=== PATIENT | male | born 1960 | race Hispanic/Latino ===

== ENCOUNTER 2017-12-25 21:17 | Observation (INO) | payer SELFPAY ==
[2017-12-25 21:50] LABS: Bilirubin Negative (Negative); Blood, Urine Large (Negative); Clarity CLEAR (Clear); Glucose, Urine (Dipstick) Negative (Negative); Leukocyte Negative (Negative); Nitrite Negative (Negative); Protein, Urine (Dipstick) 30 mg/dL (Neg-Trace); pH, Urine 5.5 (5.0-9.0)
[2017-12-25 21:52] LABS: Bacteria/HPF None Seen HPF (None Seen); Hyaline Casts/LPF 0-3 HYALINE CAST LPF (0-3 Hyaline); Pathc Cast-AUWi Flag 0.14 (0-2.49); RBC/HPF GREATER THAN 50-TNTC HPF (0-3); Squamous Epithelial None Seen HPF (0-3)
[2017-12-25 22:00] LABS: #Basophils 0.1 thou/uL (0.0-0.2); #Eosinphils 0.4 thou/uL (0.0-0.7); #Lymphocytes 2.4 thou/uL (1.20-3.40); #Monocytes 0.8 thou/uL (0.11-0.59); %Basophils 0.6 % (0.0-1.0); %Eosinophils 4.3 % (0.0-10.0); %Monocytes 9.6 % (0.0-10.0); %Neutrophils 57.5 % (42.0-75.0); Mean Corpuscular Hemoglobin 33.2 pg (27.0-31.0); Mean Corpuscular Volume 92.2 fL (78.0-98.0); Mean Platelet Volume 7.8 fL (7.4-10.4); Platelet Count 282 thou/uL (130-400); RBC Distribution Width 11.8 % (11.5-14.5); Red Blood Cell (RBC) Count 3.91 mill/uL (4.70-6.10); White Blood Cell (WBC) Count 8.7 thou/uL (4.8-10.8)
[2017-12-25 22:03] LABS: Crystals/HPF 1+ CA OXALATE HPF (Negative)
[2017-12-25 22:07] LABS: ALT (SGPT) 17 U/L (8-55); AST (SGOT) 17 U/L (5-34); Albumin 4.5 g/dL (3.5-5.0); Alkaline Phosphatase 112 U/L (40-150); Anion Gap 14 mmol/L (10-20); BUN (Urea Nitrogen) 24 mg/dL (8.4-25.7); Bilirubin, Total 0.8 mg/dL (0.2-1.2); Calc. Creatinine Clearance 0 mL/min (70-130); Calcium 9.1 mg/dL (7.8-10.44); Carbon Dioxide 22 mmol/L (22-29); Chloride 106 mmol/L (98-107); Estimated GFR-MDRD 58; Glucose 138 mg/dL (70-105); Potassium 3.9 mmol/L (3.5-5.1); Protein, Total 7.5 g/dL (6.0-8.3); Sodium 138 mmol/L (136-145)
[2017-12-25] MEDS ORDERED: Ketorolac Tromethamine 30 MG/ML VIAL ONE (23:01)
--- NOTE | 2017-12-25 23:48 | CT ---
CT OF ABDOMEN AND PELVIS 12/25/17 COMPARISON: 06/12/16 HISTORY: Chronic kidney stones, left sided flank pain. TECHNIQUE: Serial axial CT imaging at 5 mm intervals from lung bases through pubic symphysis without contrast. C oronal reformatted imaging obtained. FINDINGS: The lack of contrast limits assessment of the viscera, bowel, vascular structures and for lymphadenop athy. The visualized lung bases are unremarkable. No free intraperitoneal air is noted. The liver, spleen, gallbladder, pancreas, and adrenal glands are grossly unremarkable. There are two intrarenal calculi within the lower pole on the left measuring up to approximately 6 mm . On the right, there is an exophytic hyperdense lesion suggesting a hemorrhagic cyst in the 1.0 cm ran ge, with Hounsfield units of approximately 85. There is no evidence for an intrarenal calculus on the right. No evidence for obstructive uropathy is noted on either side. There is mild nonspecific prominence of the proximal left ureter but no calcification is seen along the course of either ureter. However, th ere is a calcification inferior to and posterior to the pubic symphysis, which measures 6 mm, best se en on axial image 86 and coronal image 93. This was not present on the prior examination. On the prio r study, there was a stone within the lower pole of the right kidney. Thus, this may represent a ston e within penile urethra. No evidence for bowel obstruction or bowel inflammatory change. Appendix appears grossly unremarkable . Review of the osseous structures demonstrates multilevel degenerative change within the imaged spine. IMPRESSION: 1. Intrarenal calculi on the left. 2. Findings suggesting a 6-7 mm stone within the penile urethra as described above. POS: [facility]
[2017-12-26] MEDS ORDERED: Ondansetron ODT 4 MG TAB ONE (00:01)
[2017-12-26] MEDS ORDERED: Metoclopramide HCl 10 MG/2 ML VIAL IVP PRN (02:42)
[2017-12-26] MEDS ORDERED: Acetaminophen 500 MG TAB PO PRN (02:42)
[2017-12-26] MEDS ORDERED: Ondansetron HCl/PF 4 MG/2 ML Vial IVP PRN ×2 (02:42→15:06)
[2017-12-26] MEDS ORDERED: diphenhydrAMINE 50 MG in Sodium Chloride 0.9% 50 ML IVPB PRN (02:42)
[2017-12-26] MEDS ORDERED: CEFAZOLIN/Water 2 GM/20 ML SYRINGE SLOW IVP SCH (03:00)
[2017-12-26 04:46] VITALS: BMI 27.0
--- NOTE | 2017-12-26 05:30 | HP ---
DATE OF SERVICE: 12/26/2017 ADMISSION DIAGNOSIS: Obstructing urethral stone and retention status post Sullivan placement in the ER, admitted for definitive therapy. HISTORY OF PRESENT ILLNESS: The patient is a 57-year-old male who had left flank pain consistent with prior stone episodes of which he has had many and passed most, but has required surgery by Dr. Slater for ureteral stones and underwent laser lithotripsy. He also has had ESWL in [place] before that with another urologist, so this was a similar pain to him, until ultimately he felt like he had the urge to urinate could not. He felt significant discomfort and like something was blocked and presented to the ER. A CT scan revealed he had a urethral stone with a distended bladder, and I was called after the ER could not place a catheter after multiple attempts. PAST MEDICAL HISTORY: Chronic back and neck pain related to work injury for which he needs surgery, but has not had surgery, right sciatica, renal stones. Possible borderline diabetes, but he has not had this as an official diagnosis. PAST SURGICAL HISTORY: Includes knee and ankle surgery after trauma, ureteroscopy in 02/2016 and prior ESWL before that. MEDICATIONS: Gabapentin 800 mg t.i.d., [place] normally for his back pain, although he has not taken this recently since he has not had insurance, which will start on 01/15/2018. ALLERGIES: None. SOCIAL HISTORY: He does not smoke, drink or use drugs. He lives at home with his mother and his daughter and granddaughter. Daughter and granddaughter are here with him. REVIEW OF SYSTEMS: Reveals frequency only 3 times a day and nocturia x1, some hesitancy if he lets the bladder get over distended, but otherwise no significant weak stream or lower urinary tract symptoms. He has had blood lately. This is not normal for him, but only around the time of the stone. He did not have any fever or chills. He did have nausea and vomiting. He did not have any chest pain, but he did admit to some shortness of breath which is not new. No cough, no reflux, no diarrhea or constipation. He has had a colonoscopy that was done for screening purposes which was normal. He is not aware of prostate cancer screening. FAMILY HISTORY: His mother is alive and well at 94. Dad passed of lung cancer at 69. He did smoke. A nephew had stomach cancer and a sister had breast cancer. PHYSICAL EXAMINATION: GENERAL: He appears comfortable in the bed as he reports urinating some since he got here. VITAL SIGNS: Temperature of 97.9, blood pressure 145/81, heart rate 66, satting 97% on room air. CARDIOVASCULAR: Regular rate and rhythm. No murmurs, gallops or rubs. LUNGS: Clear to auscultation bilaterally. NECK: There is no obvious JVD. HEENT: There is no sclerae or scleral icterus. SKIN: There are no significant skin lesions nor diaphoresis noted. ABDOMEN: Soft, nondistended, nontender with normoactive bowel sounds. He had no costovertebral angle tenderness. GENITOURINARY: His testes are descended bilaterally without masses. Phallus was uncircumcised without lesions and easily retracted without concerns for phimosis nor meatal stenosis. RECTAL: Digital rectal exam revealed a small prostate without any nodules or sidewall fixation and was nontender. EXTREMITIES: He had no significant lower extremity edema. He was prepped and draped in sterile fashion and then using a 22-Bengali silicone catheter after inserting a tube of lubrication in the urethra, a Sullivan was attempted to be passed. There was significant resistance noted; however, I was able to still get a significant amount of yellow urine return, but it did still feel like it was not fully in the bladder based on the resistance and coiling noted. So with further manipulation, I felt it had gone in farther , and I attempted to blow up the balloon. There was just too much resistance. It did not hurt him, but I could not inflate the balloon. So either the stone itself was blocking the ability to fill up the balloon, or it was still in his prostate. With further manipulation, I was able to get it into the bladder and easily blow up the balloon without any increased pain for him. He tolerated the procedure okay. There was blood around the catheter noted, but clear yellow urine return, which was sent for micro and culture. I secured it into place. LABORATORY DATA: Reveal a mild anemia at 13.0 and 36.1. Chemistries were normal other than a glucose of 138 and a creatinine was 1.29 with priors being up to 1.4 in 2013, but also 1.11 in 2016. Urinalysis that he had voided in the ER showed 4-6 WBCs, too numerous to count RBCs, no bacteria, no squamous cells, and 1+ calcium oxalate crystals. CT scan without contrast reviewed personally revealed no obvious hydronephrosis , but possibly a slight distention on the left compared to right with 2 left lower pole stones, 5 x 4 and 4 x 4 mm noted on the left, none on the right which were probably noted on construction sales representative, then a full bladder with a urethral stone, presumably in the bulbar urethra that measured 7 x 8 mm. This was definitely seen on construction sales representative. ASSESSMENT AND PLAN: We had a discussion as whether or not I would be able to place the Sullivan catheter and then whether to treat the bladder stone and the renal stone simultaneously. However, since he does not currently have insurance , we would only be able to treat the immediate obstructing stone which would be the bladder stone and anticipate cystolitholapaxy for this in which case I would admit him and attempt to get this performed in the next 24 hours. I'll keep him n.p.o. We discussed the risks and benefits of this in detail and he consented for that. We also discussed treating the other stones electively; however, they were smaller than what he just passed, so he may opt to attempt to pass them spontaneously in the future. Finally we discussed stone prevention in detail to include both dietary changes as well as he simply needs to drink more water. He should do a 24hUA when he has insurance. I'll review all of this with Dr. Slater. DAVIE
[2017-12-26] MEDS: Lactated Ringer's 1,000 ML IV SCH ×3 (06:59→16:15)
[2017-12-26] MEDS ORDERED: Docusate 100 MG CAP PO SCH (09:00)
[2017-12-26] MEDS ORDERED: Famotidine/PF 20 mg/2ml Vial SLOW IVP SCH (09:00)
[2017-12-26] MEDS ORDERED: Morphine 4 MG/ML VIAL ONE ×2 (13:07→14:08)
[2017-12-26] MEDS ORDERED: Fentanyl 100 MCG/2 ML VIAL ONE ×2 (14:08)
[2017-12-26] MEDS ORDERED: Levofloxacin 500 mg/D5W 100 ml Premix Bag ONE (14:18)
[2017-12-26] MEDS ORDERED: Dexamethasone 20 MG/5 ML VIAL ONE (14:32)
[2017-12-26] MEDS ORDERED: PROPOFOL 200 MG/20 ML VIAL ONE (14:32)
[2017-12-26] MEDS ORDERED: Ondansetron HCl/PF 4 MG/2 ML Vial ONE (14:32)
[2017-12-26] MEDS ORDERED: Lidocaine 1% PF 5 ML VIAL ONE (14:32)
[2017-12-26] MEDS ORDERED: Promethazine HCl 25 MG/ML VIAL IM PRN (15:06)
[2017-12-26] MEDS ORDERED: Morphine Sulfate 2 MG/ML SYRINGE SLOW IVP PRN (15:06)
[2017-12-26] MEDS ORDERED: Promethazine HCl 25 MG/ML VIAL SLOW IVP PRN (15:06)
[2017-12-26] MEDS ORDERED: HYDROcodone/Acetaminophen 10/325 mg Tablet PO PRN (15:47)
[2017-12-26 15:57] VITALS: BP 172/92; TEMP 97.9
[2017-12-26] MEDS ORDERED: hydrALAZINE 20 MG/ML VIAL SLOW IVP SCH (16:15)
[2017-12-26] MEDS ORDERED: Gabapentin 400 MG CAP PO SCH (21:00)
--- NOTE | 2017-12-26 21:20 | OP ---
DATE OF PROCEDURE: 12/26/2017 SERVICE: Urology. SURGEON: Jarod Slater M.D. PREOPERATIVE DIAGNOSIS: Urethral stone. POSTOPERATIVE DIAGNOSIS: Urethral stone. PROCEDURE PERFORMED: Cystolitholapaxy with holmium laser. INDICATIONS FOR PROCEDURE: Mr. De Los Santos is a 57-year-old male who had seen me previously for nephrolithiasis. He has had multiple procedures done and has passed numerable stones. Due to loss o f insurance, he stopped following up with me and has not seen me for several years. He ended up comi ng into the Emergency Room complaining of flank pain. Significant suprapubic pain and difficulty uri nating. He was seen by Dr. Schilling and found to have a urethral stone on CT scan. He has had a Sullivan placed, but is now coming to me for removal of the offending stone. Risks and benefits of the proce dure have been discussed and he has agreed to proceed forward. DESCRIPTION OF PROCEDURE: After identification of armband verification and consent, the patient was brought back to the operating room. He underwent general anesthesia with LMA. He was then placed in dorsal lithotomy position, prepped and draped in usual sterile fashion. After appropriate timeout, a lubricated 22 Paraguayan rigid cystoscope was introduced per urethra to the level of the membranous ure thra. At the apex of the prostate, a calcification was noted to be impacted with significant inflamm ation of the surrounding tissues. Using a 550-micron laser fiber, the stone was fragmented into smal ler pieces, some of the pieces were basketed out through the urethra using a 1.9 Paraguayan 0 tip nitinol basket. The remaining pieces kind of went into the bladder by themselves and were pushed in with th e cystoscope. The remaining pieces were then evacuated directly from the bladder using a combination of basket manipulation and a simple irrigation to remove the stones. Upon completion, these stones were all completely gone. Inspection of the urethra demonstrated significant damage to the urotheliu m, but no significant damage below this. There is a high risk the patient may end up with a urethral stricture at this point, although it is unclear whether or not this will definitely occur. The blad alex was left full and the cystoscope removed. A 16-Paraguayan Sullivan catheter was then placed with ease i nto the bladder, 10 mL of sterile water placed into the balloon and this was hooked to a StatLock and a gravity bag. He was then taken out of lithotomy, awakened and taken to PACU for recovery in stabl e condition. COMPLICATIONS: None. ESTIMATED BLOOD LOSS: Minimal. RETAINED TUBES AND DRAINS: A 16-Paraguayan Sullivan catheter. SPECIMENS: Stone for stone analysis. DISPOSITION: Patient will be discharged home and follow up with me in a week for a void trial.
--- NOTE | 2017-12-27 14:20 | DIS ---
DATE OF ADMISSION: 12/26/2017 DATE OF DISCHARGE: 12/26/2017 ADMITTING PHYSICIAN: Myla Schilling MD DISCHARGING PHYSICIAN: Jarod Slater M.D. ADMITTING DIAGNOSIS: Urinary retention. DISCHARGE DIAGNOSIS: Ureteral stone with urinary retention. PROCEDURE PERFORMED WHILE INPATIENT: Cystolitholapaxy less than 2 cm. BRIEF HISTORY: Mr. De Los Santos is a 57-year-old male who came into the hospital with urinary ret ention. He was seen by Dr. Schilling who attempted to place a Sullivan catheter in and on CT was found to have a urethral stone. The catheter was able to be placed, but it was unclear whether the stone was still in the urethra or back in the bladder. He was scheduled for surgery and admit to the hospital at which point, I took over his care. The full H&P can be found in the dictated portion of the [employer] system. HOSPITAL COURSE: The patient remained in the hospital n.p.o. with pain control until the surgery. Narendra barkley underwent his surgery (please see operative note for details), which successfully remove the stone. Postoperatively, he was discharged home with a Sullivan catheter. DISPOSITION: Discharge to home with catheter. DISCHARGE CONDITION: Good. FOLLOWUP: Follow up will be in 1 week for a void trial. DISCHARGE INSTRUCTIONS: Included in the [employer] system along with his discharge medications.
[2018-01-03 13:36] LABS: CA Oxalate Dihydrate 22 % (.); CA Oxalate Monohydrate 63 % (.); CA Phosphate 15 % (.); Color Tan (.); Stone Size 6x5x3 mm (.)
--- NOTE | 2018-01-07 11:58 | PQF ---
[facility] POST DISCHARGE CLINICAL DOCUMENTATION IMPROVEMENT CLARIFICATION FORM Todays Date: 01/04/18 Patients Name Filiberto Ronquillo Admit Date 12/26/17 Disch Date 12/26/17 Machine Tailer Name Sumit Og Email: [email or web address] Cell: [phone] Present Clinical Indicators - Signs / Symptoms Results and Location in Medical Record [ ] Documentation of: [ ] [ ] Documentation of: [ ] [ ] Documentation of: [ ] [ ] Documentation of: [ ] [ ] Risks [ ] [ ] [ ] Treatment [ ] Missing Bladder stone size in operative report in [facility] Please specify the Bladder Stone size by responding on this query or by adding an addendum to the operative note. [ ] [ ] Dr Jarod Slater The documentation in this patients record requires clarification to ensure coding compliance and accuracy. Check the appropriate box and include in your discharge summary. [X ] Bladder stone was 1 cm [ ] [ ] [ ] Please check this box if this does not apply to this patient [ ] Unable to determine [ ] Other diagnosis: Review the following information and exercise your independent professional judgment in responding to the clarification. Based upon the clinical findings, risk factors, and treatment, please clarify if you are treating one of the above probable or suspected diagnoses. Physician Signature: Jarod Slater Date___01/08/28____ Time__13:21____ __ MTDD
== END 2017-12-26 17:45 | disposition home or self-care (01) ==
LOC: ERS 21:17 → SURG A 12-26 03:02
PROVIDERS: ADMIT Urology; ATTEND Urology
PROC: 0TCB8ZZ Extirpation of Matter from Bladder, Via Natural or Artificial Opening Endoscopic (ICD-10-PCS; principal; 2017-12-26)
DX: N21.1 Calculus in urethra (principal); N13.8 Other obstructive and reflux uropathy; R33.8 Other retention of urine; I10 Essential (primary) hypertension; R73.03 Prediabetes; G47.30 Sleep apnea, unspecified; Z80.0 Family history of malignant neoplasm of digestive organs; Z87.39 Personal history of other diseases of the musculoskeletal system and connective tissue; Z80.1 Family history of malignant neoplasm of trachea, bronchus and lung; Z80.3 Family history of malignant neoplasm of breast
CPT/HCPCS: 36415; 51702; 74176; 80053; 81003; 81015; 82365; 85025; 87086; 88300; 96361; 96374; 96375; 96376; C1769; G0378; J1100; J1885; J1956; J2001; J2270; J2405; J2704; J3010; Q0162

== ENCOUNTER 2018-03-07 13:53 | Outpatient (CLI) | payer MEDICARE ==
--- NOTE | 2018-03-07 15:01 | RAD ---
CHEST 2 VIEWS: HISTORY: Preop. FINDINGS: Cardiac silhouette and pulmonary vasculature are unremarkable. Mediastinum is midline. No confluent airspace consolidation, pneumothorax, or pleural fluid. IMPRESSION: No active cardiopulmonary abnormalities are demonstrated. POS: [facility]
[2018-03-07 15:15] LABS: Hemoglobin 13.3 g/dL (14.0-18.0); Mean Corpuscular HGB CONC 33.4 g/dL (32.0-36.0); Mean Corpuscular Hemoglobin 31.6 pg (27.0-31.0); Mean Corpuscular Volume 94.6 fL (78.0-98.0); Mean Platelet Volume 8.4 fL (7.4-10.4); Platelet Count 337 thou/uL (130-400); RBC Distribution Width 11.8 % (11.5-14.5); White Blood Cell (WBC) Count 6.5 thou/uL (4.8-10.8)
[2018-03-07 15:21] LABS: Prothrombin Time 12.9 SEC (12.0-14.7)
[2018-03-07 15:26] LABS: Bilirubin Negative (Negative); Blood, Urine Negative (Negative); Clarity CLEAR (Clear); Glucose, Urine (Dipstick) Negative (Negative); Leukocyte Negative (Negative); Nitrite Negative (Negative); Protein, Urine (Dipstick) Negative (Neg-Trace); Specific Gravity, Urine 1.017 (1.002-1.036); Urobilinogen 0.2 mg/dL (0.2-1.0); pH, Urine 5.5 (5.0-9.0)
[2018-03-07 15:29] LABS: Bacteria/HPF None Seen HPF (None Seen); Hyaline Casts/LPF 0-3 HYALINE CAST LPF (0-3 Hyaline); Pathc Cast-AUWi Flag 0.29 (0-2.49); Squamous Epithelial 0-3 HPF (0-3)
[2018-03-07 15:50] LABS: Anion Gap 12 mmol/L (10-20); BUN (Urea Nitrogen) 17 mg/dL (8.4-25.7); Calc. Creatinine Clearance 0 mL/min (70-130); Calcium 9.6 mg/dL (7.8-10.44); Carbon Dioxide 24 mmol/L (22-29); Chloride 105 mmol/L (98-107); Estimated GFR-MDRD 66; Glucose 100 mg/dL (70-105); Potassium 3.5 mmol/L (3.5-5.1); Sodium 137 mmol/L (136-145)
--- NOTE | 2018-03-09 17:53 | EKG ---
Test Reason : Blood Pressure : / mmHG Vent. Rate : 062 BPM Atrial Rate : 062 BPM P-R Int : 140 ms QRS Dur : 092 ms QT Int : 408 ms P-R-T Axes : 054 059 027 degrees QTc Int : 414 ms Normal sinus rhythm Normal ECG No previous ECGs available Confirmed by MAGALIS BRAMBILA (2) on 03/09/2018 5:53:07 PM Referred By: LARA Confirmed By:MAGALIS BRAMBILA
== END 2018-03-07 13:54 | disposition home or self-care (01) ==
LOC: LABBT 13:53
PROVIDERS: ATTEND Urology
DX: Z01.818 Encounter for other preprocedural examination (principal); N20.0 Calculus of kidney; N21.1 Calculus in urethra
CPT/HCPCS: 71046; 80048; 81001; 85027; 85610; 85730; 87086; 93005; 93010

== ENCOUNTER 2018-03-09 15:27 | Emergency (ER) | payer MEDICARE ==
[2018-03-09] MEDS ORDERED: Ketorolac Tromethamine 30 MG/ML VIAL ONE (15:46)
[2018-03-09] MEDS ORDERED: Ondansetron HCl/PF 4 MG/2 ML Vial ONE (15:46)
[2018-03-09 16:01] LABS: #Basophils 0.1 thou/uL (0.0-0.2); #Eosinphils 0.2 thou/uL (0.0-0.7); #Lymphocytes 2.3 thou/uL (1.20-3.40); #Monocytes 0.9 thou/uL (0.11-0.59); #Neutrophils 7.3 thou/uL (1.40-6.50); %Basophils 0.8 % (0.0-1.0); %Eosinophils 1.9 % (0.0-10.0); %Lymphocytes 21.6 % (21.0-51.0); %Monocytes 8.3 % (0.0-10.0); %Neutrophils 67.4 % (42.0-75.0); Hemoglobin 14.6 g/dL (14.0-18.0); Mean Corpuscular HGB CONC 33.7 g/dL (32.0-36.0); Mean Corpuscular Hemoglobin 31.9 pg (27.0-31.0); Mean Corpuscular Volume 94.9 fL (78.0-98.0); Mean Platelet Volume 8.2 fL (7.4-10.4); Platelet Count 379 thou/uL (130-400); RBC Distribution Width 11.7 % (11.5-14.5); Red Blood Cell (RBC) Count 4.58 mill/uL (4.70-6.10); White Blood Cell (WBC) Count 10.8 thou/uL (4.8-10.8)
[2018-03-09] MEDS ORDERED: Morphine 4 MG/ML VIAL ONE (16:01)
[2018-03-09 16:23] LABS: ALT (SGPT) 19 U/L (8-55); AST (SGOT) 19 U/L (5-34); Albumin 4.9 g/dL (3.5-5.0); Alkaline Phosphatase 132 U/L (40-150); Anion Gap 17 mmol/L (10-20); BUN (Urea Nitrogen) 22 mg/dL (8.4-25.7); Bilirubin, Total 0.9 mg/dL (0.2-1.2); CK (CPK) 131 U/L (30-200); Calc. Creatinine Clearance 0 mL/min (70-130); Calcium 9.9 mg/dL (7.8-10.44); Carbon Dioxide 26 mmol/L (22-29); Chloride 99 mmol/L (98-107); Estimated GFR-MDRD 54; Globulin 3.6 g/dL (2.4-3.5); Glucose 114 mg/dL (70-105); Lipase 18 U/L (8-78); Potassium 3.6 mmol/L (3.5-5.1); Protein, Total 8.5 g/dL (6.0-8.3); Sodium 138 mmol/L (136-145)
[2018-03-09 16:29] LABS: CKMB 1.6 ng/mL (0-6.6); Troponin I Less than 0.010 ng/mL (< 0.028)
[2018-03-09 17:07] LABS: Bilirubin Negative (Negative); Blood, Urine Negative (Negative); Clarity CLEAR (Clear); Glucose, Urine (Dipstick) Negative (Negative); Leukocyte Negative (Negative); Nitrite Negative (Negative); Protein, Urine (Dipstick) 30 mg/dL (Neg-Trace); Specific Gravity, Urine 1.026 (1.002-1.036); Urobilinogen 0.2 mg/dL (0.2-1.0); pH, Urine 6.5 (5.0-9.0)
[2018-03-09 17:13] LABS: Bacteria/HPF None Seen HPF (None Seen); Hyaline Casts/LPF 0-3 HYALINE CAST LPF (0-3 Hyaline); Squamous Epithelial 0-3 HPF (0-3)
--- NOTE | 2018-03-09 18:29 | CT ---
NONCONTRAST CT ABDOMEN AND PELVIS: 03/09/2018 HISTORY: Left flank pain and vomiting. COMPARISON: 12/25/2017 FINDINGS: There is mild bibasilar atelectasis. There is moderate left hydronephrosis and hydroureter with two separate calculi seen within the dista l left ureter, at the level of the inferior aspect, left sacroiliac joint, with each calculus measuri ng approximately 5 mm, within the distal left ureter. A few 3 to 4 mm nonobstructing calculi are see n within the superior and inferior pole, left kidney. There is a 2 mm, nonobstructing calculus in the inferior pole, right kidney. No right ureteral calcu donna is seen. There is a stable, increased density, exophytic lesion, posterior aspect, mid portion, right kidney. The liver, pancreas, bilateral adrenal glands, and urinary bladder demonstrate a grossly normal nonen hanced CT appearance. Calcified granuloma is seen in the spleen. There is increased density seen within the colon, which is likely related to ingestion of bismuth typ e material. A few colonic diverticula are seen. Small bowel loops are normal in caliber. The appen aakash is visualized and is normal in caliber. There has been no other interval change when compared to the prior exam. IMPRESSION: 1. Obstructing distal left ureteral calculi with two separate calculi seen in the distal left ureter , each measuring approximately 5 mm. There is moderate to severe left hydronephrosis and hydroureter . There is mild periureteral stranding present. 2. Nonobstructing bilateral renal calculi. 3. Hyperdense, cystic lesion, mid portion, right kidney, which may represent a Bosniak type II cysti c lesion. POS: [facility]
== END 2018-03-09 18:03 | disposition home or self-care (01) ==
LOC: ERS 15:27
DX: N13.2 Hydronephrosis with renal and ureteral calculous obstruction (principal); I10 Essential (primary) hypertension; G47.30 Sleep apnea, unspecified; Z79.899 Other long term (current) drug therapy
CPT/HCPCS: 74176; 80053; 81003; 81015; 82550; 82553; 83690; 84484; 85025; 96374; 96375; J1885; J2270; J2405

== ENCOUNTER → 2018-03-11 | Day surgery (SDC) | payer MEDICARE ==
[2018-03-07 13:38] VITALS: BMI 28.3
[~2018-03-11] MED LIST: Dexamethasone 20 MG/5 ML VIAL ONE; HYDROmorphone 0.5 MG/0.5 ML SYRINGE ONE; Iothalamate Meglumine 60% 50 ML VIAL FS ONE; Levofloxacin 500 mg/D5W 100 ml Premix Bag ONE; Lidocaine 1% PF 5 ML VIAL ONE; Midazolam HCl 2 mg/2 ml Vial ONE; Ondansetron HCl/PF 4 MG/2 ML Vial ONE; PROPOFOL 200 MG/20 ML VIAL ONE; ePHEDrine/0.9% NaCl/PF SYRINGE 50 mg/10 ml ONE
--- NOTE | 2018-03-11 20:40 | OP ---
DATE OF PROCEDURE: 03/11/2018 SERVICE: Urology. SURGEON: Jarod Slater M.D. PREOPERATIVE DIAGNOSIS: Left ureteral stone and right renal stone with right flank pain. POSTOPERATIVE DIAGNOSIS: Left ureteral stone and renal stone. PROCEDURES PERFORMED: Left ureteroscopy, laser lithotripsy, basket extraction of stone, and placemen t of a 6 x 26 double-J stent with right retrograde pyelogram and right diagnostic ureteroscopy. INDICATIONS FOR PROCEDURE: Mr. De Los Santos is a 57-year-old male who initially presented to me w ith uncontrolled left flank pain. He was found to have an approximately 6 mm stone in his left dista l ureter with an additional stone found in his left kidney as well as unknown stone previously in his right kidney which was nonobstructing. In the interim between his CT and his surgery date, he began having right flank pain and so I told him that we would go ahead and investigate the right side whil e he was asleep. All risks and benefits of surgery were discussed and he has agreed to proceed forwa rd. DESCRIPTION OF PROCEDURE: After identification of armband and verification of consent, the patient w as brought back to the operating room where he underwent general anesthesia with an LMA. He was then placed in dorsal lithotomy position, prepped and draped in usual sterile fashion. After appropriate timeout, a lubricated 22 Mozambican rigid cystoscope was introduced per urethra into the bladder. Atten tion was turned to the left ureteral orifice which was cannulated with a 0.035 sensor wire up to the level of the renal pelvis. The cystoscope was then used to drain the bladder and then removed leavin g the sensor wire in place as a safety wire. A semi rigid ureteroscope was then passed alongside the sensor wire into the bladder and then into the distal ureter where the stone was encountered. Using a 200 micron laser fiber, the stone was fragmented into small pieces. The laser was then removed an d a 1.9 Mozambican 0 tip nitinol basket was used to retrieve the pieces and pulled them out for stone octavia lysis. Ureteroscopy then demonstrated no additional stones within the ureter. An Amplatz Super Stif f wire was then placed through the ureteroscope up to the level of the renal pelvis and the ureterosc ope removed. An 11/13 x 46 cm ureteral access sheath was advanced over the Super Stiff wire to the l evel of the proximal ureter. The inner cannula Super Stiff wire then removed leaving the outer sheat h and the sensor wire in place as a safety wire. A flexible digital ureteroscope was then passed up through the ureteral access sheath into the renal pelvis which was dilated and hydronephrotic. Two a dditional stones which are probably in the 2-3 mm range were found within the kidney attached to the renal papilla. These were basketed and removed with simple removal without needing laser lithotripsy on these. There were no additional stone seen to pull back ureteroscopy was employed and no additio nal stones were seen within the ureter. The cystoscope was then backloaded over the sensor wire back into the bladder and a 6 x 26 double-J stent was advanced over the sensor wire to the level of the r enal pelvis. The wire was then removed leaving a good curl in the renal pelvis and good curl in the bladder. Attention was then turned to the right ureteral orifice which a 5-Mozambican Pollack catheter w as introduced. A retrograde pyelogram was performed which demonstrated a relatively normal caliber u reter and slight hydronephrosis on the right. There was a tapering point which could not clearly be defined as whether or not a stone was present. There was no obvious filling defect to be sure the Po llack catheter was removed and the sensor wire was advanced through the ureteral orifice to the level of the renal pelvis. The cystoscope was then removed and a semirigid ureteroscope was brought back in and a full ureteroscopy performed above the entire length of the ureter with the assistance of a S uper Stiff wire for path finding. The entire ureter was evaluated and no stones were seen anywhere w ithin the ureter. Due to the use of a semi rigid ureteroscope, we did not perform a pyeloscopy, but primary concern was that there was an unknown very small 2 mm stone within the right kidney which I w anted to make sure it was not within the ureter. It is not and I felt that this stone should pass on its own as the ureter is open enough. Ureteroscope was then withdrawn and the sensor wire also with drawn. The cystoscope was then used to drain the bladder and then removed. The patient was then radha kened and taken to PACU for recovery in stable condition. COMPLICATIONS: None. ESTIMATED BLOOD LOSS: Minimal. RETAINED TUBES AND DRAINS: A 6 x 26 double-J stent on the left. SPECIMENS: Stone analysis. DISPOSITION: The patient will be discharged home and follow up in 2 weeks as he did have significant abrasions and mucosal erosions from the stone in the left ureter.
== END ==
LOC: SDC 11:36
PROVIDERS: ATTEND Urology
PROC: 0TF78ZZ Fragmentation in Left Ureter, Via Natural or Artificial Opening Endoscopic (ICD-10-PCS; principal; 2018-03-11)
PROC: 0T778DZ Dilation of Left Ureter with Intraluminal Device, Via Natural or Artificial Opening Endoscopic (ICD-10-PCS; 2018-03-11)
PROC: 0TC78ZZ Extirpation of Matter from Left Ureter, Via Natural or Artificial Opening Endoscopic (ICD-10-PCS; 2018-03-11)
PROC: BT1D1ZZ Fluoroscopy of Right Kidney, Ureter and Bladder using Low Osmolar Contrast (ICD-10-PCS; 2018-03-11)
DX: N13.2 Hydronephrosis with renal and ureteral calculous obstruction (principal); I10 Essential (primary) hypertension; Z79.899 Other long term (current) drug therapy; Z88.5 Allergy status to narcotic agent
CPT/HCPCS: 52356; 76000; 82365; 88300; C1758; C1769; 74420; J1100; J1170; J1956; J2001; J2250; J2405; J2704; Q9961

== ENCOUNTER 2018-09-10 12:06 | Outpatient (CLI) | payer MEDICARE ==
--- NOTE | 2018-09-10 12:59 | RAD ---
FLumbar spine flexion-extension lateral radiographs Exam date: September 10, 2018 INDICATION: Lumbar radiculopathy COMPARISON: Prior exam dated October 27, 2015 FINDINGS: No abnormal translational motion is demonstrated. No acute fracture or subluxation is noted. There is moderate multilevel disc degenerative disease most pronounced at L4-5. There is moderate multilevel facet osteoarthrosis. IMPRESSION: No abnormal translational motion. Moderate lumbar spondylosis.
--- NOTE | 2018-09-10 13:09 | MRI ---
FMR the lumbar spine without contrast INDICATION: Lumbar radiculopathy COMPARISON: Lumbar spinal radiograph dated September 10, 2018 TECHNIQUE: Multiplanar multisequence MR images were obtained of lumbar spine without IV contrast. FINDINGS: Bone marrow: Bone marrow signal intensity appears within normal limits. There is mild Modic endplate degenerative change at L4-5. Distal spinal cord and conus: Normal. The conus seen to terminate at L1. Visualized retroperitoneum and paraspinal soft tissues: Normal. Small cyst is seen involving the supe rior pole of the right kidney. No lymphadenopathy is evident. Vertebral levels: L5-S1: There is a broad-based disc bulge with facet hypertrophy and ligamentum flavum hypertrophy ind ucing moderate to severe left lateral recess narrowing with probable impingement of the traversing le ft S1 nerve root. There is mild right and mild/moderate left neural foraminal narrowing. L4-5: There is a broad-based disc bulge, severe facet joint hypertrophy and ligament flavum hypertrop hy inducing moderate central canal narrowing with moderate right and mild left neural foraminal narro wing L3-4: There is a broad-based disc bulge, ligamenta flava hypertrophy and moderate facet hypertrophy p roducing [id number] central canal narrowing with mild bilateral neural foraminal narrowing L2-3: There is a mild broad-based disc bulge but no appreciable central canal or neural foraminal ghazal rowing L1-L2: Mild broad-based disc bulge without appreciable central canal or neural foraminal narrowing. T12-L1: There is mild facet joint degenerative change with no appreciable central canal or neural for aminal narrowing. IMPRESSION: 1. Moderate to severe left lateral recess narrowing due to broad-based disc bulge and facet hypertrop hy with probable impingement of the traversing left S1 nerve root. 2. Moderate central canal narrowing at L4-5 with [id number] central canal narrowing at L3-4. 3. Neural foraminal narrowing as detailed above from L3-4 through L5-S1.
== END 2018-09-10 12:07 | disposition home or self-care (01) ==
LOC: SCSMRI 12:06
PROVIDERS: ATTEND Neurological Surgery
DX: M47.26 Other spondylosis with radiculopathy, lumbar region (principal); M51.16 Intervertebral disc disorders with radiculopathy, lumbar region; M48.061 Spinal stenosis, lumbar region without neurogenic claudication; M48.07 Spinal stenosis, lumbosacral region
CPT/HCPCS: 72100; 72148